=== PATIENT | male | born 1955 | race Caucasian/White ===

== ENCOUNTER 2022-08-15 21:58 | Emergency (ER) | payer OTHER, MEDICARE ==
[2022-08-15 22:15] LABS: BASOPHILS % (AUTO) 0.3 %; EOSINOPHILS # (AUTO) 0.2 10^3/uL (0.0-0.7); EOSINOPHILS % (AUTO) 1.8 %; HCT - HEMATOCRIT 46.2 % (42.0-52.0); HGB - HEMOGLOBIN 14.8 g/dL (14.0-18.0); LYMPHOCYTES # (AUTO) 2.5 10^3/uL (1.5-3.5); LYMPHOCYTES % (AUTO) 22.9 %; MEAN CORPUSCULAR HEMOGLOBIN 27.3 pg (27.0-31.0); MEAN CORPUSCULAR VOLUME 85.1 fL (80.0-94.0); MONOCYTES # (AUTO) 0.9 10^3/uL (0.0-1.0); MONOCYTES % (AUTO) 8.7 %; NEUTROPHILS # (AUTO) 7.1 10^3/uL (1.5-6.6); NEUTROPHILS % (AUTO) 66.1 %; PLT - PLATELET COUNT 227 10^3/uL (130-450); RED BLOOD COUNT 5.43 10^6/uL (4.70-6.10); RED CELL DISTRIBUTION WIDTH 14.6 % (12.0-15.0); WHITE BLOOD COUNT 10.8 x10^3/uL (4.8-10.8)
--- NOTE | 2022-08-15 22:18 | ED Physician Documentation ---
PD HPI CHEST PAIN - Stated complaint Stated Complaint: CHEST PX - Chief complaint Chief Complaint: Cardiac - History obtained from History obtained from: Patient - History of Present Illness Similar symptoms before: Has not had sx before Recently seen: Not recently seen - Additional information Additional information: HPI from patient. Patient c/o 2 days of episodic chest tightness associated with radiation to mid/left upper back . Gradual onset , no inciting event, and no exacerbating nor ameliorating factors. Patient denies h/o similar symptoms. No past medical history of cardiac problems. Patient says he had exertional chest pain while golfing approximately 7 years ago that prompted stress test with unremarkable results. Patient had right TKR three months ago with ongoing post-operative RLE swelling that had been improving until gradually worsening over past few weeks. Patient denies nausea/vomiting, shortness of breath. Review of Systems Constitutional: denies: Fever, Chills, Sweats Cardiac: reports: Chest pain / pressure. denies: Palpitations, Pedal edema, Calf pain Respiratory: reports: Reviewed and negative GI: reports: Reviewed and negative PD PAST MEDICAL HISTORY - Past Medical History Past Medical History: Yes Cardiovascular: Hypertension, High cholesterol - Past Surgical History Past Surgical History: Yes Ortho: Knee replacement - Present Medications Home Medications: Ambulatory Orders Medication Instructions Recorded Confirmed Carvedilol [Coreg] 1 tab PO BID 08/15/22 08/15/22 Losartan/Hydrochlorothiazide 1 tab PO DAILY 08/15/22 08/15/22 [Losartan-Hctz 100-12.5 mg Tab] Simvastatin [Zocor] 10 mg PO DAILY 08/15/22 08/15/22 amLODIPine [Norvasc] 5 mg PO DAILY 08/15/22 08/15/22 - Allergies Allergies/Adverse Reactions: Allergies Allergy/AdvReac Type Severity Reaction Status Date / Time No Known Drug Allergies Allergy Verified 08/15/22 22:08 - Living Situation Living Situation: reports: With spouse/s.o. Living Arrangement: reports: At home - Social History Does the pt smoke?: No PD ED PE NORMAL - Vitals Vital signs reviewed: Yes - General General: Alert and oriented X 3, No acute distress, Well developed/nourished - HEENT HEENT: Moist mucous membranes - Neck Neck: Supple, no meningeal sign - Cardiac Cardiac: RRR, No murmur, No gallop, No rub - Respiratory Respiratory: No respiratory distress, Clear bilaterally - Abdomen Abdomen: Soft, Non tender - Derm Derm: Normal color, Warm and dry - Extremities Extremities: No edema Results - Vitals Vitals: Vital Signs - 24 hr 08/16/22 08/16/22 01:21 01:35 Heart Rate 61 62 Respiratory 18 13 Rate Blood Pressure 142/86 H 152/86 H O2 Saturation 97 96 Oxygen O2 Source Room air - EKG (time done) No standard instances Rate: Rate (enter#) (67) Rhythm: NSR [place]: LAD Intervals: Normal [place] QRS: Normal Ischemia: ST depression (1 mm V2-V4) Compare to prior EKG: Old EKG unavailable - Labs Labs: Laboratory Tests 08/15/22 08/15/22 08/15/22 22:05 22:05 22:05 WBC 10.8 RBC 5.43 Hgb 14.8 Hct 46.2 MCV 85.1 MCH 27.3 MCHC 32.0 RDW 14.6 Plt Count 227 MPV 10.0 Neut # (Auto) 7.1 H Lymph # (Auto) 2.5 [place] # (Auto) 0.9 Eos # (Auto) 0.2 Baso # (Auto) 0.0 Absolute Nucleated RBC 0.00 Nucleated RBC % 0.0 PT INR APTT Sodium 141 Potassium 3.2 L Chloride 104 Carbon Dioxide 27 Anion Gap 10.0 BUN 21 H Creatinine 1.0 Estimated GFR (MDRD) 75 L Glucose 129 H Calcium 9.2 Total Bilirubin 1.1 H AST 58 H ALT 28 Alkaline Phosphatase 59 Troponin I High Sens 9546.9 H* Total Protein 7.3 Albumin 4.2 Globulin 3.1 Albumin/Globulin Ratio 1.4 Lipase 36 SARS-CoV-2 (PCR) 08/15/22 08/16/22 23:42 00:49 WBC RBC Hgb Hct MCV MCH MCHC RDW Plt Count MPV Neut # (Auto) Lymph # (Auto) [place] # (Auto) Eos # (Auto) Baso # (Auto) Absolute Nucleated RBC Nucleated RBC % PT 13.4 H INR 1.2 APTT 206.0 H* Sodium Potassium Chloride Carbon Dioxide Anion Gap BUN Creatinine Estimated GFR (MDRD) Glucose Calcium Total Bilirubin AST ALT Alkaline Phosphatase Troponin I High Sens Total Protein Albumin Globulin Albumin/Globulin Ratio Lipase SARS-CoV-2 (PCR) NOT DETECTED - Rads (name of study) chest xray Radiology: Prelim report reviewed, EMP read indepedently, See rad report PD Medical Decision Making - ED course Complexity details: reviewed results, re-evaluated patient, considered differential, d/w patient ED course: episodic chest pain x 2 days, 1mm ST segment depression in V2 - V4 and hs-cTn markedly elevated (9546.9). He is given 325mg ASA in ED and 1" NTP to anterior chest wall for NSTEMI. Heparin gtt per cardiac protocol initiated. Result d/w patient and diagnosis of NSTEMI d/w patient. I discussed this case with Dr. Virgen, cardiology detective automobile section at [facility] in [place]. There are beds available at [facility] , and he recommends co ntacting other hospitals to ascertain whether cardiac catheterization is available within next 24 hours, as he thinks it unlikely patient will be able to undergo cardiac cath at [facility] due to other patients already in queue for the day. He says that if contacting other appropriate facilities does not facilitate acceptance of patient with likelihood of cath within the next 24 hours, that I can discuss the case with the hospitalist at [facility] for transfer to their facility. No other hospitals that [facility] contacted have combination of bed availability combined with likelihood of cardiac catheterization within next 24 hours. I then discussed this case with Dr. Howard , hospitalist at [facility] and he accepts patient for transfer to their service. On my initial conversation with Dr. Virgen, he recommends discontinuing the NTP and initiating NTG gtt so as to be able to titrate to effect of reduction (ideally elimination) of symptoms. Patient is also given 4mg IV MSO4 for chest pain during ED stay Departure - Departure Disposition: 02 Transfer Acute Care Hosp Clinical Impression: NSTEMI (non-ST elevated myocardial infarction) Condition: Stable Discharge Date/Time: 08/16/22 02:14
[2022-08-15 22:26] LABS: ALBUMIN 4.2 g/dL (3.2-5.5); ALBUMIN/GLOBULIN RATIO 1.4 (1.0-2.2); BILIRUBIN,TOTAL 1.1 mg/dL (0.2-1.0); CALCIUM 9.2 mg/dL (8.5-10.3); POTASSIUM 3.2 mmol/L (3.5-5.0); TOTAL PROTEIN 7.3 g/dL (6.7-8.2)
--- NOTE | 2022-08-15 22:32 | XRAY Report ---
PROCEDURE: Chest 1 View X-Ray INDICATIONS: Chest pain TECHNIQUE: One view of the chest was acquired. COMPARISON: None. FINDINGS: Surgical changes and devices: None. Lungs and pleura: No pleural effusions or pneumothorax. Lungs are clear. Mediastinum: Mediastinal contours appear normal. Heart size is normal. Bones and chest wall: No suspicious bony lesions. Overlying soft tissues appear unremarkable. IMPRESSION: Normal for age, source of current chest pain symptoms is not seen. Reviewed by: Austin Hernandez MD on 08/15/2022 10:30 PM [facility] Approved by: Austin Hernandez MD on 08/15/2022 10:30 PM [facility] Station ID: [id number]
[2022-08-15] MEDS ORDERED: NITROGLYCERIN 2% PASTE TOP STA (23:35)
[2022-08-15] MEDS ORDERED: ASPIRIN CHEW 81 MG TABLET PO STA (23:35)
[2022-08-16] MEDS ORDERED: NITROGLYCERIN 50 MG/250 ML 50 MG/250 ML BOTTLE IV STA (00:54)
[2022-08-16] MEDS ORDERED: HEPARIN 25000UNITS/500ML (D5W) 25,000 UNIT/500 ML BAG IV SCH (01:00)
[2022-08-16] MEDS ORDERED: MORPHINE 2 MG/ML CARPUJECT IVP STA (01:05)
[2022-08-16 01:18] LABS: INR 1.2 (0.8-1.2); PT - PROTHROMBIN TIME 13.4 secs (9.9-12.6)
[2022-08-16 01:36] VITALS: BP 152/86
== END 2022-08-16 02:14 | disposition short-term general hospital (02) ==
LOC: ED 21:58
DX: I21.4 Non-ST elevation (NSTEMI) myocardial infarction (principal)
CPT/HCPCS: 36415; 71045; 80053; 83690; 84484; 85025; 85610; 85730; 87635; 93005; 96374; 96375; 99285; A9270

== ENCOUNTER 2022-08-16 01:58 | Outpatient (CLI) | payer OTHER, MEDICARE | END 2022-08-16 01:59 | disposition short-term general hospital (02) | LOC: EMS 01:58 | PROVIDERS: ATTEND Emergency Medicine | DX: I21.4 Non-ST elevation (NSTEMI) myocardial infarction (principal) | CPT/HCPCS: A0425; A0426 ==

== ENCOUNTER 2023-06-03 08:12 | Outpatient (CLI) | payer MEDICARE, OTHER ==
[2023-06-03 14:51] LABS: BILIRUBIN,URINE NEGATIVE (NEGATIVE); GLUCOSE, URINE (UA) NEGATIVE (NEGATIVE); KETONES,URINE (UA) NEGATIVE (NEGATIVE); LEUKOCYTE ESTERASE, URINE NEGATIVE (NEGATIVE); NITRITE,URINE NEGATIVE (NEGATIVE); OCCULT BLOOD,URINE NEGATIVE (NEGATIVE); PH,URINE 6.5 PH (5.0-7.5); PROTEIN,URINE 30 mg/dL (NEGATIVE); UROBILINOGEN,URINE 1 (NORMAL) E.U./dL (NORMAL)
[2023-06-03 15:26] LABS: CLARITY,URINE CLOUDY (CLEAR)
[2023-06-03 15:27] LABS: AMORPHOUS SEDIMENT,UR Marked /LPF; BACTERIA,URINE None Seen /HPF (None Seen); CHOL/HDL RATIO 2.6 (<5.0); CHOLESTEROL 95 mg/dL; HDL CHOLESTEROL 37 mg/dL; LDL CHOLESTEROL,CALCULATED 46 mg/dL; LDL/HDL RATIO 1.2 (<3.6); RBC,URINE None Seen /HPF (0-5); SQUAMOUS EPITHELIAL CELL,UR NONE SEEN (<= Few); TRIGLYCERIDES 62 mg/dL (48-352); VLDL CHOLESTEROL 12 mg/dL; WBC,URINE 0-3 /HPF (0-3)
== END 2023-06-03 08:13 | disposition home or self-care (01) ==
LOC: LAB.S 08:12
PROVIDERS: ATTEND Nurse Practitioner
DX: R35.0 Frequency of micturition (principal); Z95.1 Presence of aortocoronary bypass graft
CPT/HCPCS: 36415; 80061; 81001; 83721